=== PATIENT | female | born 1960 | race Caucasian/White ===

== ENCOUNTER 2023-01-24 15:47 | Outpatient (CLI) | payer OTHER ==
--- NOTE | 2023-01-24 17:10 | XRAY Report ---
PROCEDURE: Foot 3 View LT INDICATIONS: LEFT FOOT PAIN TECHNIQUE: 3 views of the foot were acquired. COMPARISON: None. FINDINGS: Bones: No fractures or dislocations. No suspicious bony lesions. Mild osteoarthritic changes in ank le and foot. Plantar and posterior calcaneal spurring. Soft tissues: No suspicious soft tissue calcifications or masses. IMPRESSION: 1. No acute bony abnormality. 2. Mild osteoarthritis. 3. Calcaneal spurring. Reviewed by: Radha Lund MD on 01/24/2023 5:09 PM [facility] Approved by: Radha Lund MD on 01/24/2023 5:09 PM [facility] Station ID: [id number]
== END 2023-01-24 15:48 | disposition home or self-care (01) ==
LOC: DI 15:47
PROVIDERS: ATTEND Podiatrist
DX: M19.072 Primary osteoarthritis, left ankle and foot (principal); M77.32 Calcaneal spur, left foot